=== PATIENT | male | born 1975 | race Caucasian/White ===

== ENCOUNTER 2025-01-10 09:11 | Day surgery (SDC) | payer OTHER ==
[2025-01-10] MEDS ORDERED: Midazolam 1 MG/ML 2 ML SDV ONE (09:15)
[2025-01-10] MEDS ORDERED: fentaNYL 50 MCG/ML SDV ONE (09:15)
[2025-01-10] MEDS ORDERED: Propofol 200 MG/20 ML SDV ONE (09:15)
[2025-01-10] MEDS: Lactated Ringers 1,000 ML IV SCH (10:13)
== END 2025-01-10 12:21 | disposition home or self-care (01) ==
LOC: JP.SDS 09:11 → EDSEX 09:11 → JP.SDS 12:21
PROVIDERS: ATTEND Surgery
DX: Z12.11 Encounter for screening for malignant neoplasm of colon (principal); D12.2 Benign neoplasm of ascending colon; K63.5 Polyp of colon; Z88.8 Allergy status to other drugs, medicaments and biological substances
CPT/HCPCS: 00811; 45380; J2250; J2704; J3010; J7120